=== PATIENT | female | born 1970 | race American Indian/Alaskan Native ===

== ENCOUNTER 2021-06-08 13:06 | Emergency (ER) | payer MEDICARE ==
[2021-06-08 13:58] LABS: Basophils # (Auto) 0.2 K/mm3 (0.0-0.1); Basophils % (Auto) 1.7 % (0.0-1.8); Eosinophils # (Auto) 0.2 K/mm3 (0.0-0.4); Eosinophils % (Auto) 2.1 % (0.0-4.3); Hematocrit 48.7 % (30.3-42.9); Hemoglobin 15.8 gm/dl (10.1-14.3); Lymphocytes # (Auto) 3.3 K/mm3 (1.2-5.4); Lymphocytes % (Auto) 33.2 % (13.4-35.0); Mean Corpuscular HGB Conc 32 % (30-34); Mean Corpuscular Volume 86 fl (79-97); Monocytes # (Auto) 0.8 K/mm3 (0.0-0.8); Monocytes % (Auto) 7.9 % (0.0-7.3); Platelet Count 282 K/mm3 (140-440)
[2021-06-08 14:27] LABS: Alanine Aminotransferase 11 units/L (7-56); Albumin 3.9 g/dL (3.9-5); Blood Urea Nitrogen 6 mg/dL (7-17); Calcium 9.3 mg/dL (8.4-10.2); Hemolysis Index 16
--- NOTE | 2021-06-08 14:32 | XRay Report ---
CHEST 2 VIEWS INDICATION / CLINICAL INFORMATION: Chest Pain. COMPARISON: None available. FINDINGS: SUPPORT DEVICES: None. HEART / MEDIASTINUM: No significant abnormality. LUNGS / PLEURA: No significant pulmonary or pleural abnormality. No pneumothorax. ADDITIONAL FINDINGS: No significant additional findings. IMPRESSION: 1. No acute findings. Signer Name: Tee Begum MD Signed: 06/08/2021 2:28 PM Workstation Name: [id number] [id number]
[2021-06-08 14:40] LABS: Bacteria,Urine 1+ /HPF (Negative); Bilirubin,Urine NEG (Negative); Blood,Urine SM (Negative); Color,Urine Yellow (Yellow); Protein,Urine <15 mg/dL mg/dL (Negative); RBC,Urine < 1.0 /HPF (0.0-6.0); Urobilinogen,Urine < 2.0 mg/dL (<2.0)
[2021-06-08 14:45] LABS: BUN/Creatinine Ratio 9
[2021-06-08 14:47] LABS: Amphetamine Screen,Urine Negative; Benzodiazepines Screen,Urine Negative; Cannabinoid Screen,Urine Negative; Cocaine Screen,Urine Negative; Methadone Screen,Urine Negative; Opiate Screen,Urine Negative
[2021-06-08 16:26] VITALS: BP 146/101
--- NOTE | 2021-06-08 17:23 | Emergency Department Report ---
ED Palpitations HPI - General Chief Complaint: Chest Pain Stated Complaint: CHEST PAIN Time Seen by Provider: 06/08/21 13:14 Source: patient, family Mode of arrival: Ambulatory Limitations: No Limitations - History of Present Illness Initial Comments: Patient is a 50-year-old female who presents emergency room with complaints of palpitations that began a week ago. She states it feels like her heart is racing. She states that 1 day last week she had an episode of sharp chest pain that lasted for couple minutes and then resolved. She has no chest pain currently. She denies any shortness of breath, cough, fever, vomiting, diarrhea, hemoptysis, leg swelling, calf pain. She went to [facility] and was advised to be seen in the emergency room secondary to tachycardia. Past medical history of schizoaffective. She denies any changes to her medications. She is a smoker. She denies any alcohol use. She denies any drug use. She denies any caffeine use. Her mother has a history of cardiomyopathy, she denies any family history of PR. - Related Data Home Medications Medication Instructions Recorded Confirmed Last Taken lamoTRIgine [LaMICtal] 200 mg PO QDAY 07/06/18 07/06/18 Unknown Previous Rx's Medication Instructions Recorded Last Taken Type Metoprolol [Lopressor TAB] 25 mg PO DAILY #30 tablet 06/08/21 Unknown Rx Allergies Allergy/AdvReac Type Severity Reaction Status Date / Time No Known Allergies Allergy Unverified 07/06/18 16:09 ED Review of Systems ROS: Stated complaint: CHEST PAIN Other details as noted in HPI Comment: All other systems reviewed and negative ED Past Medical Hx - Past Medical History Additional medical history: Schizoaffective disorder - Social History Smoking Status: Current Every Day Smoker - Medications Home Medications: Home Medications Medication Instructions Recorded Confirmed Last Taken Type lamoTRIgine [LaMICtal] 200 mg PO QDAY 07/06/18 07/06/18 Unknown History Metoprolol [Lopressor TAB] 25 mg PO DAILY #30 tablet 06/08/21 Unknown Rx ED Physical Exam - General Limitations: No Limitations General appearance: alert, in no apparent distress - Head Head exam: Present: atraumatic, normocephalic - Eye Eye exam: Present: normal appearance - ENT ENT exam: Present: mucous membranes moist - Respiratory Respiratory exam: Present: normal lung sounds bilaterally. Absent: respiratory distress, wheezes, rales, rhonchi, stridor, chest wall tenderness, accessory muscle use, decreased breath sounds, prolonged expiratory - Cardiovascular Cardiovascular Exam: Present: normal rhythm, tachycardia, normal heart sounds. Absent: systolic murmur, diastolic murmur, rubs, gallop - Neurological Exam Neurological exam: Present: alert, oriented X3 - Psychiatric Psychiatric exam: Present: normal affect, normal mood - Skin Skin exam: Present: warm, dry, intact ED Course Vital Signs 06/08/21 06/08/21 06/08/21 13:11 14:35 14:39 Temperature 98.9 F Pulse Rate 126 H 100 H Respiratory 18 18 Rate Blood Pressure Blood Pressure 155/101 157/98 [Left] O2 Sat by Pulse 99 98 100 Oximetry 06/08/21 06/08/21 06/08/21 14:45 15:01 15:15 Temperature Pulse Rate 99 H 96 H 98 H Respiratory 22 17 26 H Rate Blood Pressure 157/98 149/98 149/98 Blood Pressure [Left] O2 Sat by Pulse 98 98 97 Oximetry 06/08/21 06/08/21 06/08/21 15:31 15:45 16:01 Temperature Pulse Rate 101 H 95 H 94 H Respiratory 34 H 29 H 21 Rate Blood Pressure 142/98 142/98 146/101 Blood Pressure [Left] O2 Sat by Pulse 96 98 98 Oximetry 06/08/21 16:24 Temperature Pulse Rate 91 H Respiratory 16 Rate Blood Pressure Blood Pressure [Left] O2 Sat by Pulse 99 Oximetry ED Medical Decision Making - Lab Data Result diagrams: 06/08/21 13:39 06/08/21 13:39 Lab Results 06/08/21 06/08/21 06/08/21 Range/Units 13:39 13:39 13:39 WBC 9.9 (4.5-11.0) K/mm3 RBC 5.70 H (3.65-5.03) M/mm3 Hgb 15.8 H (10.1-14.3) gm/dl Hct 48.7 H (30.3-42.9) % MCV 86 (79-97) fl MCH 28 (28-32) pg MCHC 32 (30-34) % RDW 16.0 H (13.2-15.2) % Plt Count 282 (140-440) K/mm3 Lymph % (Auto) 33.2 (13.4-35.0) % [place] % (Auto) 7.9 H (0.0-7.3) % Eos % (Auto) 2.1 (0.0-4.3) % Baso % (Auto) 1.7 (0.0-1.8) % Lymph # (Auto) 3.3 (1.2-5.4) K/mm3 [place] # (Auto) 0.8 (0.0-0.8) K/mm3 Eos # (Auto) 0.2 (0.0-0.4) K/mm3 Baso # (Auto) 0.2 H (0.0-0.1) K/mm3 Seg Neutrophils % 55.1 (40.0-70.0) % Seg Neutrophils # 5.4 (1.8-7.7) K/mm3 D-Dimer 200.22 (0-234) ng/mlDDU Sodium (137-145) mmol/L Potassium (3.6-5.0) mmol/L Chloride (98-107) mmol/L Carbon Dioxide (22-30) mmol/L Anion Gap mmol/L BUN (7-17) mg/dL Creatinine (0.6-1.2) mg/dL Estimated GFR ml/min BUN/Creatinine Ratio % Glucose (65-100) mg/dL Calcium (8.4-10.2) mg/dL Magnesium (1.7-2.3) mg/dL Total Bilirubin (0.1-1.2) mg/dL AST (5-40) units/L ALT (7-56) units/L Alkaline Phosphatase (35-129) units/L Total Creatine Kinase (30-135) units/L Troponin T (0.00-0.029) ng/mL NT-Pro-B Natriuret Pep (0-450) pg/mL Total Protein (6.3-8.2) g/dL Albumin (3.9-5) g/dL Albumin/Globulin Ratio % TSH (0.270-4.200) mlU/mL HCG, Qual Negative (Negative) Urine Color (Yellow) Urine Turbidity (Clear) Urine pH (5.0-7.0) Ur Specific [place] (1.003-1.030) Urine Protein (Negative) mg/dL Urine Glucose (UA) (Negative) mg/dL Urine Ketones (Negative) mg/dL Urine Blood (Negative) Urine Nitrite (Negative) Urine Bilirubin (Negative) Urine Urobilinogen (<2.0) mg/dL Ur Leukocyte Esterase (Negative) Urine WBC (Auto) (0.0-6.0) /HPF Urine RBC (Auto) (0.0-6.0) /HPF U Epithel Cells (Auto) (0-13.0) /HPF Urine Bacteria (Auto) (Negative) /HPF Urine Opiates Screen Urine Methadone Screen Ur Barbiturates Screen Ur Phencyclidine Scrn Ur Amphetamines Screen U Benzodiazepines Scrn Urine Cocaine Screen U Marijuana (THC) Screen Drugs of Abuse Note 06/08/21 06/08/21 06/08/21 Range/Units 13:39 13:39 16:00 WBC (4.5-11.0) K/mm3 RBC (3.65-5.03) M/mm3 Hgb (10.1-14.3) gm/dl Hct (30.3-42.9) % MCV (79-97) fl MCH (28-32) pg MCHC (30-34) % RDW (13.2-15.2) % Plt Count (140-440) K/mm3 Lymph % (Auto) (13.4-35.0) % [place] % (Auto) (0.0-7.3) % Eos % (Auto) (0.0-4.3) % Baso % (Auto) (0.0-1.8) % Lymph # (Auto) (1.2-5.4) K/mm3 [place] # (Auto) (0.0-0.8) K/mm3 Eos # (Auto) (0.0-0.4) K/mm3 Baso # (Auto) (0.0-0.1) K/mm3 Seg Neutrophils % (40.0-70.0) % Seg Neutrophils # (1.8-7.7) K/mm3 D-Dimer (0-234) ng/mlDDU Sodium 139 (137-145) mmol/L Potassium 3.9 (3.6-5.0) mmol/L Chloride 105.4 (98-107) mmol/L Carbon Dioxide 22 (22-30) mmol/L Anion Gap 16 mmol/L BUN 6 L (7-17) mg/dL Creatinine 0.7 (0.6-1.2) mg/dL Estimated GFR > 60 ml/min BUN/Creatinine Ratio 9 % Glucose 92 (65-100) mg/dL Calcium 9.3 (8.4-10.2) mg/dL Magnesium 1.90 (1.7-2.3) mg/dL Total Bilirubin < 0.20 (0.1-1.2) mg/dL AST 15 (5-40) units/L ALT 11 (7-56) units/L Alkaline Phosphatase 85 (35-129) units/L Total Creatine Kinase 55 (30-135) units/L Troponin T < 0.010 < 0.010 (0.00-0.029) ng/mL NT-Pro-B Natriuret Pep 70.96 (0-450) pg/mL Total Protein 7.7 (6.3-8.2) g/dL Albumin 3.9 (3.9-5) g/dL Albumin/Globulin Ratio 1.0 % TSH 1.460 (0.270-4.200) mlU/mL HCG, Qual (Negative) Urine Color (Yellow) Urine Turbidity (Clear) Urine pH (5.0-7.0) Ur Specific [place] (1.003-1.030) Urine Protein (Negative) mg/dL Urine Glucose (UA) (Negative) mg/dL Urine Ketones (Negative) mg/dL Urine Blood (Negative) Urine Nitrite (Negative) Urine Bilirubin (Negative) Urine Urobilinogen (<2.0) mg/dL Ur Leukocyte Esterase (Negative) Urine WBC (Auto) (0.0-6.0) /HPF Urine RBC (Auto) (0.0-6.0) /HPF U Epithel Cells (Auto) (0-13.0) /HPF Urine Bacteria (Auto) (Negative) /HPF Urine Opiates Screen Urine Methadone Screen Ur Barbiturates Screen Ur Phencyclidine Scrn Ur Amphetamines Screen U Benzodiazepines Scrn Urine Cocaine Screen U Marijuana (THC) Screen Drugs of Abuse Note 06/08/21 06/08/21 Range/Units Unknown Unknown WBC (4.5-11.0) K/mm3 RBC (3.65-5.03) M/mm3 Hgb (10.1-14.3) gm/dl Hct (30.3-42.9) % MCV (79-97) fl MCH (28-32) pg MCHC (30-34) % RDW (13.2-15.2) % Plt Count (140-440) K/mm3 Lymph % (Auto) (13.4-35.0) % [place] % (Auto) (0.0-7.3) % Eos % (Auto) (0.0-4.3) % Baso % (Auto) (0.0-1.8) % Lymph # (Auto) (1.2-5.4) K/mm3 [place] # (Auto) (0.0-0.8) K/mm3 Eos # (Auto) (0.0-0.4) K/mm3 Baso # (Auto) (0.0-0.1) K/mm3 Seg Neutrophils % (40.0-70.0) % Seg Neutrophils # (1.8-7.7) K/mm3 D-Dimer (0-234) ng/mlDDU Sodium (137-145) mmol/L Potassium (3.6-5.0) mmol/L Chloride (98-107) mmol/L Carbon Dioxide (22-30) mmol/L Anion Gap mmol/L BUN (7-17) mg/dL Creatinine (0.6-1.2) mg/dL Estimated GFR ml/min BUN/Creatinine Ratio % Glucose (65-100) mg/dL Calcium (8.4-10.2) mg/dL Magnesium (1.7-2.3) mg/dL Total Bilirubin (0.1-1.2) mg/dL AST (5-40) units/L ALT (7-56) units/L Alkaline Phosphatase (35-129) units/L Total Creatine Kinase (30-135) units/L Troponin T (0.00-0.029) ng/mL NT-Pro-B Natriuret Pep (0-450) pg/mL Total Protein (6.3-8.2) g/dL Albumin (3.9-5) g/dL Albumin/Globulin Ratio % TSH (0.270-4.200) mlU/mL HCG, Qual (Negative) Urine Color Yellow (Yellow) Urine Turbidity Clear (Clear) Urine pH 6.0 (5.0-7.0) Ur Specific [place] 1.006 (1.003-1.030) Urine Protein <15 mg/dl (Negative) mg/dL Urine Glucose (UA) Neg (Negative) mg/dL Urine Ketones Tr (Negative) mg/dL Urine Blood Sm (Negative) Urine Nitrite Neg (Negative) Urine Bilirubin Neg (Negative) Urine Urobilinogen < 2.0 (<2.0) mg/dL Ur Leukocyte Esterase Neg (Negative) Urine WBC (Auto) 1.0 (0.0-6.0) /HPF Urine RBC (Auto) < 1.0 (0.0-6.0) /HPF U Epithel Cells (Auto) < 1.0 (0-13.0) /HPF Urine Bacteria (Auto) 1+ (Negative) /HPF Urine Opiates Screen Negative Urine Methadone Screen Negative Ur Barbiturates Screen Negative Ur Phencyclidine Scrn Negative Ur Amphetamines Screen Negative U Benzodiazepines Scrn Negative Urine Cocaine Screen Negative U Marijuana (THC) Screen Negative Drugs of Abuse Note Disclamer Vital Signs 06/08/21 06/08/21 06/08/21 13:11 14:35 14:39 Temperature 98.9 F Pulse Rate 126 H 100 H Respiratory 18 18 Rate Blood Pressure Blood Pressure 155/101 157/98 [Left] O2 Sat by Pulse 99 98 100 Oximetry 06/08/21 06/08/21 06/08/21 14:45 15:01 15:15 Temperature Pulse Rate 99 H 96 H 98 H Respiratory 22 17 26 H Rate Blood Pressure 157/98 149/98 149/98 Blood Pressure [Left] O2 Sat by Pulse 98 98 97 Oximetry 06/08/21 06/08/21 06/08/21 15:31 15:45 16:01 Temperature Pulse Rate 101 H 95 H 94 H Respiratory 34 H 29 H 21 Rate Blood Pressure 142/98 142/98 146/101 Blood Pressure [Left] O2 Sat by Pulse 96 98 98 Oximetry 06/08/21 16:24 Temperature Pulse Rate 91 H Respiratory 16 Rate Blood Pressure Blood Pressure [Left] O2 Sat by Pulse 99 Oximetry - EKG Data EKG shows normal: sinus rhythm, axis, intervals, QRS complexes, ST-T waves Rate: tachycardia - EKG Data 06/08/21 17:35 LAE - Radiology Data Radiology results: report reviewed Ordering Physician: DIPAK FONTAINE Date of Service: 06/08/21 Procedure(s): XR chest routine 2V Accession Number(s): [id number] cc: DIPAK FONTAINE Fluoro Time In Minutes: CHEST 2 VIEWS INDICATION / CLINICAL INFORMATION: Chest Pain. COMPARISON: None available. FINDINGS: SUPPORT DEVICES: None. HEART / MEDIASTINUM: No significant abnormality. LUNGS / PLEURA: No significant pulmonary or pleural abnormality. No pneumothorax. ADDITIONAL FINDINGS: No significant additional findings. IMPRESSION: 1. No acute findings. Signer Name: Tee Begum MD Signed: 06/08/2021 2:28 PM Workstation Name: [id number] Transcribed By: DB Dictated By: TEE BEGUM MD Electronically Authenticated By: TEE BEGUM MD Signed Date/Time: 06/08/211427 DD/ 25 TD/TT: - Medical Decision Making Patient is a 50-year-old female who presents emergency room with complaints of palpitations that began a week ago. She states it feels like her heart is racing. She states that 1 day last week she had an episode of sharp chest pain that lasted for couple minutes and then resolved. She has no chest pain currently. She denies any shortness of breath, cough, fever, vomiting, diarrhea, hemoptysis, leg swelling, calf pain. She went to [facility] today and was advised to be seen in the emergency room secondary to tachycardia. Past medical history of schizoaffective. She denies any changes to her medications. She is a smoker. She denies any alcohol use. She denies any drug use. She denies any caffeine use. Her mother has a history of cardiomyopathy, she denies any family history of PR. Vitals with tachycardia and elevated blood pressure, improved upon repeat. Labs are stable. Troponin is negative x2. D- dimer is negative. Patient is low risk based on Wells criteria for PE, PE unlikely. Electrolytes are normal, TSH within normal limits. Patient has no anemia. EKG with sinus tachycardia and left atrial enlargement, otherwise normal. Chest x-ray with no acute process. Discussed all results with patient answer questions. Patient will be placed on low-dose metoprolol given cardiology and primary care follow-up. Discussed the importance of close follow-up. Advised patient to get a blood pressure cuff and a pulse oximetry meter [id number] and to measure her heart rate and blood pressure. advised pt Please take medication as prescribed. Please follow-up with a welder fitter apprentice. Follow-up with your primary care doctor. Return to emergency room immediately for any new or worsening symptoms. Wells' Criteria for Pulmonary Embolism from [email or web address] on 06/08/2021 All calculations should be rechecked by clinician prior to use RESULT SUMMARY: 1.5 points Low risk group: 1.3% chance of PE in an ED population. Another study assigned scores ? 4 as PE Unlikely and had a 3% incidence of PE. INPUTS: Clinical signs and symptoms of DVT > 0 = No PE is #1 diagnosis OR equally likely > 0 = No Heart rate > 100 > 1.5 = Yes Immobilization at least 3 days OR surgery in the previous 4 weeks > 0 = No Previous, objectively diagnosed PE or DVT > 0 = No Hemoptysis > 0 = No Malignancy w/ treatment within 6 months or palliative > 0 = No Critical care attestation.: If time is entered above; I have spent that time in minutes in the direct care of this critically ill patient, excluding procedure time. ED Disposition Clinical Impression: Palpitations, Tachycardia Chest pain Qualifiers: Chest pain type: unspecified Qualified Code(s): R07.9 - Chest pain, unspecified Disposition: 01 HOME / SELF CARE / HOMELESS Is pt being admited?: No Does the pt Need Aspirin: No Condition: Stable Instructions: Nonspecific Chest Pain, Adult, Palpitations Additional Instructions: Please take medication as prescribed. Please follow-up with a welder fitter apprentice. Follow-up with your primary care doctor. Return to emergency room immediately for any new or worsening symptoms. Prescriptions: Metoprolol [Lopressor TAB] 25 mg PO DAILY #30 tablet Referrals: PRIMARY CAREMD [Primary Care Provider] - 2-3 Days DINORAH LEPE MD [Staff Physician] - 2-3 Days Time of Disposition: 17:36 Print Language: [place]ER HEART Score - HEART Score History: Slightly suspicious EKG: Normal Age: 45-65 Risk factors: 1-2 risk factors Troponin: Troponin T < 0.010 ng/mL (0.00-0.029) 06/08/21 16:00 Troponin: < normal limit HEART Score: 2
--- NOTE | 2021-06-09 08:38 | Electrocardiograph Report ---
[facility] Test Date: 2021-06-08 Test Time: 13:22:50 Pat Name: RUDY HAN Department: Room: Gender: F Oxygen Equipment Preparer: UZIEL : 1970 Requested By: JORGE MORRIS Order Number: [id number] Reading MD: Mateo Albarran Measurements Intervals [place] Rate: 114 P: 47 [place]: 140 QRS: 13 QRSD: 73 T: 19 QT: 320 QTc: 440 Interpretive Statements Sinus tachycardia Left atrial enlargement No previous ECG available for comparison Electronically Signed On 06-09-2021 8:38:13 EDT by Mateo Albarran
== END 2021-06-08 18:15 | disposition home or self-care (01) ==
LOC: ED 13:06
DX: R00.2 Palpitations (principal); R00.0 Tachycardia, unspecified; R07.9 Chest pain, unspecified; F25.9 Schizoaffective disorder, unspecified; F17.200 Nicotine dependence, unspecified, uncomplicated; Z79.899 Other long term (current) drug therapy
CPT/HCPCS: 36415; 71046; 80053; 80307; 81001; 82550; 83735; 83880; 84443; 84484; 84703; 85025; 85379; 93005; 99284